=== PATIENT | female | born 1965 | race Caucasian/White ===

== ENCOUNTER → 2016-06-07 | Day surgery (SDC) | payer OTHER, BC ==
[~2016-06-07] MED LIST: CYCL1TAB29 PO; IOHEXOL 180 MG/ML 20 ML VIAL (for RAD DIAG) EPIDURAL ONE; LIDOCAINE HCL 1% PF 30 ML VIAL EPI ONE; MEPERIDINE HCL 25 MG/ML VIAL IV ONE; NAPR220T95 PO; PROPOFOL 200 MG/20 ML AMP IV ONE; TRIAMCINOLONE ACETONIDE 40 MG/ML VIAL NB ONE
--- NOTE | 2016-06-11 07:15 | M6 ---
cc: MANN NASH M.D. DATE 06/07/2016 DATE OF 1965 PROCEDURE Fluoroscopically guided left L5-S1 and left S1 transforaminal epidural steroid injection. History and physical was completed and signed. Consent was signed. Procedure site was marked. Medications were listed and reconciled. Pain score was recorded. Allergies were noted. Time out was taken. Fluoroscopy time was recorded where applicable. Sedation was administered or directed by Dr. Nash. The patient was given oxygen. The patient was monitored by a registered nurse. Total procedure time was greater than 15 minutes. PROCEDURE NOTE An IV was started, blood pressure cuff, pulse oximeter and EKG were applied. The patient was placed in the prone position on a Fernando table, sedated with small amounts of Versed and propofol titrated to effect. Vital signs were monitored and remained stable throughout the procedure. The patient remained responsive throughout the procedure. The lumbar area was scrubbed with antimicrobial solution, prepped with 10% Betadine solution, and draped with sterile drapes. Fluoroscopy was used in both the AP and lateral projections to clearly visualize the left L5-S1 and left S1 neural foramen. Then separate sterile 22 gauge, 3 1/2-inch Chiba needles were advanced under fluoroscopic guidance into the dorsal-most aspect of each foramen. There was negative aspiration for blood or CSF. There were no reported paresthesias by the patient. There was no washout of 2 mL of Omnipaque. Then after waiting approximately 60 seconds, the patient was slowly given 3 mL of 1% Xylocaine, 2 mL of Omnipaque and 40 mg of Kenalog at each location. Following this, the patient was taken to the recovery room with stable vital signs, neurologically intact. W. MD ASHU Ferreira/DASHAWN /10:22 AM /7:14 AM
== END | disposition home or self-care (01) ==
LOC: PHSDC 09:29
PROVIDERS: ATTEND Pain Medicine Interventional Pain Medicine
DX: M79.605 Pain in left leg (principal); M54.16 Radiculopathy, lumbar region
CPT/HCPCS: 64483; 64484; 99152; J2175; J3301; Q9965

== ENCOUNTER → 2016-06-15 | Day surgery (SDC) | payer OTHER, BC ==
--- NOTE | 2016-06-19 23:03 | M6 ---
cc: MANN NASH M.D. DATE 06/15/16 1965. PROCEDURE Fluoroscopically guided left L5-S1 and left S1 transforaminal epidural steroid injection. History and physical was completed and signed. Consent was signed. Procedure site was marked. Medications were listed and reconciled. Pain score was recorded. Allergies were noted. Time out was taken. Fluoroscopy time was recorded where applicable. Sedation was administered or directed by Dr. Nash. The patient was given oxygen. The patient was monitored by a registered nurse. Total procedure time was greater than 15 minutes. PROCEDURE NOTE: An IV was started, blood pressure cuff, pulse oximeter and EKG were applied. The patient was placed in the prone position on a Fernando table, sedated with small amounts of Versed and propofol titrated to effect. Vital signs were monitored and remained stable throughout the procedure. The patient remained responsive throughout the procedure. The lumbar area was scrubbed with antimicrobial solution, prepped with 10% Betadine solution, and draped with sterile drapes. Fluoroscopy was used in both the AP and lateral projections to clearly visualize the left L5-S1 and left S1 neural foramen. Then separate sterile 22 gauge, 3 1/2-inch Chiba needles were advanced under fluoroscopic guidance into the dorsal-most aspect of each foramen. There was negative aspiration for blood or CSF. There were no reported paresthesias by the patient. There was no washout of 2 mL of Omnipaque. Then after waiting approximately 60 seconds, the patient was slowly given 3 mL of 1% Xylocaine 3 mL of Omnipaque 40 mg of Kenalog at each location. Following this, the patient was taken to the recovery room with stable vital signs, neurologically intact. W. MD ASHU Ferreira/ /9:55 AM /10:57 PM
== END | disposition home or self-care (01) ==
LOC: PHSDC 09:03
PROVIDERS: ATTEND Pain Medicine Interventional Pain Medicine
DX: M79.605 Pain in left leg (principal)
CPT/HCPCS: 64483; 64484; 99152; J2175; J3301; Q9965